=== PATIENT | female | born 1970 | race Caucasian/White ===

== ENCOUNTER 2021-06-26 06:29 | Emergency (ER) | payer OTHER, SELFPAY ==
[2021-06-26] VITALS (8 sets, daily range): BP systolic 105–128; BP diastolic 79–95; PULSE 80–95; RESP 18–19; TEMP 36.9–37.2; O2SAT 91–96; BMI 39.9
--- NOTE | 2021-06-26 06:58 | XRR_ITS ---
PROCEDURE INFORMATION: Exam: XR Chest Exam date and time: 06/26/2021 6:58 AM Age: 51 years old Clinical indication: Patient HX: SOB, coughing x 1 week; Additional info: Dyspnea TECHNIQUE: Imaging protocol: XR of the chest. Views: 1 view. COMPARISON: No relevant prior studies available. FINDINGS: Lungs: Emphysematous change and interstitial prominence. Pleural spaces: No pleural effusion. Heart/Mediastinum: No cardiomegaly. Bones/joints: Unremarkable. XR/XR chest 1V portable [id number] IMPRESSION: Emphysematous change and interstitial prominence.
--- NOTE | 2021-06-26 07:19 | W.ED.COVID ---
HPI - COVID General: Chief Complaint: COVID symptoms Stated Complaint: Sob, Cough Time Seen by Provider: 06/26/21 06:40 Triage information: Has fever, cough or shortness of breath. Exposure to COVID + person last 14 days History of Present Illness: HPI Narrative: 51-year-old female presents emergency room complaining of cough fever anosmia and diarrhea. Symptoms began 1 week ago today. They seem to be worsening slightly the last couple of days. MD complaint: known COVID positive Prior covid testing: no COVID 19 common symptoms: positive fever(s), chills, cough, non-productive cough, productive cough, body aches, headache(s), loss of sense of smell and/or taste, nasal congestion, nausea and diarrhea COVID 19 other sytmptoms: negative chest pain or requiring oxygen Onset (ago): day(s) (7) Severity: mild Pertinent comorbid conditions: diabetes and hypertension Treatment prior to arrival: none COVID Results: SARS-CoV-2 Antigen (Rapid) Positive (Negative) 06/26/21 06:55 06/26/21 Nasal/Oral Coronavirus 2019 PCR Detected H 06/26/21 07:02 06/26/21 Review of Systems Const: Reports: fever(s), chills and body aches ENMT: Reports: nasal congestion Card: Denies: chest pain, edema, dyspnea on exertion or orthopnea Resp: Reports: productive cough and non-productive cough GI: Reports: nausea and diarrhea : Denies: flank pain, difficulty voiding, dysuria, urinary frequency or urinary urgency Skin/Breast: Denies: rash or pruritus Neuro: Reports: headache(s) Physical Exam Const: COMMON NORMALS: no acute distress GENERAL APPEARANCE: cooperative and comfortable ORIENTATION/CONSCIOUSNESS: Yes awake, Yes oriented to person, Yes oriented to place and Yes oriented to time HENMT: COMMON NORMALS: normocephalic, atraumatic and hearing grossly normal bilaterally HEAD & SCALP: normocephalic and atraumatic Neck/C-Spine: COMMON NORMALS: no JVD Resp: COMMON NORMALS: normal respiratory effort, No retractions, No use of accessory muscles and clear to auscultation bilaterally AUSCULTATION: clear to auscultation bilaterally Cardio: COMMON NORMALS: no JVD, regular rate, regular rhythm and No murmurs present (Cardio) RATE: regular rate RHYTHM: regular rhythm GI: COMMON NORMALS: Soft to palpation and No hepatosplenomegaly present AUSCULTATION: Yes normoactive bowel sounds PALPATION: Yes Soft to palpation, No Tenderness to palpation present (GI), No Guarding due to palpation present (GI) and Yes No hepatosplenomegaly present Extremity: COMMON NORMALS: normal to inspection, capillary refill normal, no clubbing, cyanosis or edema, no calf tenderness and no pedal edema Neuro: SENSORIUM/ORIENTATION: Yes oriented to person, Yes oriented to place and Yes oriented to time Skin: COMMON NORMALS: no rashes or lesions noted GENERAL SKIN EXAM: no rashes or lesions noted Course Vital Signs: Vital signs: Vital Signs Temperature 98.4 F 06/26/21 10:32 Pulse Rate 87 06/26/21 10:32 Respiratory Rate 19 H 06/26/21 10:32 Blood Pressure 126/79 06/26/21 10:32 Pulse Oximetry 95 06/26/21 10:32 MDM - COVID MDM Narrative: Medical decision making narrative: Patient meets qualifications for BAM infusion. Discussed risk benefits and alternatives. Patient wishes to proceed. She does not meet qualifications for home oxygen. Her rapid was positive as well as the rapid she had positive at home. Lab Data: Labs: Lab Results 06/26/21 06/26/21 Range/Units 06:55 07:02 Nasal/Oral COVID-1 9 PCR Detected H SARS-CoV-2 Ag (Rap id) Positive H (Negative) COVID Results: SARS-CoV-2 Antigen (Rapid) Positive (Negative) H 06/26/21 06:55 06/26/21 Nasal/Oral Coronavirus 2019 PCR Detected H 06/26/21 07:02 06/26/21 Monoclonal Antibody Treatments Inclusion/Exclusion Criteria weight >/= 40 kg and + direct Sars-Cov-2 test less than 7-10 days ago BMI >/= 35 and has diabetes not requiring hospitalization, not requiring oxygen (if not chronically on oxygen) and no increase oxygen requirement (if chronically on oxygen) Patient education patient/family/caregiver received/reviewed fact sheet, Emergency Use Authorization/unapproved drug status discussed with patient/family/caregiver, alternatives to this treatment discussed with patient/family/caregiver, risks and benefits of medication reviewed with patient/family/caregiver, patient/family/caregiver given opportunity for questions, which were answered and patient consents to receiving Monoclonal Antibody Treatment Plan for treatment Meets criteria for Monoclonal Antibody infusion Ordering Monoclonal Antibody infusion for today Discharge Plan Discharge Patient Disposition: Home Clinical Impression: COVID-19 Condition: Stable Discharge Orders: Discharge ED (Routine); Ordered 06/26/21 Ordered By: Ricki Mac Referrals: Lorraine Hallman [Primary Care Provider] - Patient Instructions: Opioid Safety Coding Level of Care Code ED Suction Plate Roller Hand for Chg Fwd Exam Comprehensive
[2021-06-26 07:49] LABS: SARS Covid-2 Antigen Positive (Negative)
--- NOTE | 2021-06-26 09:17 | PC.NURSE ---
Very nauseated . Informed Dr Mac. Verbal order for Zofran 4mg IVP
[2021-06-26] MEDS: ondansetron 2 mg/ML SDV 2 mL 4 MG IVP (09:28)
[2021-06-26 17:28] LABS: Coronavirus Test Green County Detected
== END 2021-06-26 11:05 | disposition home or self-care (01) ==
PROVIDERS: Emergency Provider Family Medicine; PCP Registered Nurse
DX: U07.1 COVID-19 (principal)
CPT/HCPCS: 71045; 87426; 87635; 96365; 96375; 99284; J2405

== ENCOUNTER 2021-06-29 00:11 | Emergency (ER) | payer OTHER, SELFPAY ==
[2021-06-29 00:28] VITALS: BP 161/91; PULSE 86; RESP 19; TEMP 37.1; O2SAT 96; BMI 39.9
[2021-06-29 00:32] VITALS: O2SAT 96
--- NOTE | 2021-06-29 00:32 | XRR_ITS ---
PROCEDURE INFORMATION: Exam: XR Chest Exam date and time: 06/29/2021 12:32 AM Age: 51 years old Clinical indication: Cough and shortness of breath; Additional info: Covid TECHNIQUE: Imaging protocol: XR of the chest. Views: 1 view. COMPARISON: CR XR chest 1V portable [id number] 06/26/2021 6:59 AM FINDINGS: Lungs: Mild peripheral ground-glass density in both lungs, more predominantly on the left, consistent with viral or atypical pneumonia. No dense consolidation. Pleural spaces: Unremarkable. No pleural effusion. No pneumothorax. Heart/Mediastinum: Unremarkable. No cardiomegaly. Bones/joints: Unremarkable. XR/XR chest 1V portable [id number] IMPRESSION: Mild peripheral ground-glass densities consistent with the patient's known COVID-19.
--- NOTE | 2021-06-29 01:18 | ED_ITS ---
HPI - COVID General: Chief Complaint: COVID symptoms Stated Complaint: sob, covid positive Time Seen by Provider: 06/29/21 00:32 Source: patient Mode of arrival: ambulatory Limitations: no limitations Triage information: Has fever, cough or shortness of breath . Exposure to COVID + person last 14 days History of Present Illness: HPI Narrative: Patient is a nice 51-year-old female who presents to ED today for re-evaluation of COVID symptoms. Patient states she is on day 7?8 of COVID symptoms. She was recently seen at our facility and received a monoclonal antibody infusion. Patient states since then she feels like her cough has progressively worsened. She states sometimes she coughs so hard it feels like she experiences of bronchospasm that makes it difficult to breathe. complaint: known COVID positive Prior covid testing: yes, results known Prior testing date: 06/26/21 COVID 19 common symptoms: positive cough, productive cough, dyspnea and fatigue; negative fever(s), chills, body aches, headache(s), nasal congestion, vomiting or diarrhea COVID 19 other sytmptoms: negative chest pain Onset (ago): day(s) Severity: moderate Pertinent comorbid conditions: diabetes, hypertension and obesity Treatment prior to arrival: monocloncal antibody COVID Results: SARS-CoV-2 Antigen (Rapid) Positive (Negative) H 06/26/21 06:55 06/26/21 Nasal/Oral Coronavirus 2019 PCR Detected H 06/26/21 07:02 06/26/21 Review of Systems Const: Reports: fatigue; Denies: fever(s), chills or body aches ENMT: Denies: nasal discharge or nasal congestion Card: Denies: chest pain or palpitations Resp: Reports: dyspnea and productive cough GI: Denies: abdominal pain, vomiting or diarrhea Neuro: Denies: headache(s) Physical Exam Const: COMMON NORMALS: no acute distress, patient oriented x3 and no limitations GENERAL APPEARANCE: cooperative NUTRITIONAL APPEARANCE: overweight ORIENTATION/CONSCIOUSNESS: Yes awake, Yes oriented to person, Yes oriented to place and Yes oriented to time HENMT: COMMON NORMALS: normocephalic and atraumatic HEAD & SCALP: normocephalic and atraumatic Resp: COMMON NORMALS: normal respiratory effort and clear to auscultation bilaterally AUSCULTATION: clear to auscultation bilaterally Cardio: COMMON NORMALS: regular rate and regular rhythm RATE: regular rate RHYTHM: regular rhythm Extremity: COMMON NORMALS: normal to inspection Neuro: SREE COMA SCALE: document GCS findings [place] coma scale eye opening: Spontaneous [place] coma scale verbal response: Orientated Sree coma scale motor response: Obey commands Sree coma scale total score: 15 COMMON NORMALS: patient oriented x3 SENSORIUM/ORIENTATION: Yes oriented to person, Yes oriented to place and Yes oriented to time Course Vital Signs: Vital signs: Vital Signs Temperature 98.7 F 06/29/21 00:28 Pulse Rate 67 06/29/21 01:32 Respiratory Rate 17 06/29/21 01:32 Blood Pressure 161/91 06/29/21 00:28 Pulse Oximetry 95 06/29/21 01:32 MDM - COVID MDM Narrative: Medical decision making narrative: Patient's vital signs are stable. She clinically is non-ill appearing. She is not requiring oxygen. Patient will be given albuterol inhaler and discharged home on oral dexamethasone. Slight worsening of CXR when compared to imaging 3 days ago. Return to ED precautions given. COVID Results: SARS-CoV-2 Antigen (Rapid) Positive (Negative) H 06/26/21 06:55 06/26/21 Nasal/Oral Coronavirus 2019 PCR Detected H 06/26/21 07:02 06/26/21 Discharge Plan Discharge Patient Disposition: Home Clinical Impression: COVID-19 Condition: Stable Prescriptions: New dexamethasone 6 mg tablet 6 mg PO DAILY Qty: 6 RF: 0 Discharge Orders: Discharge ED (Routine); Ordered 06/29/21 Ordered By: Zoila Vale Referrals: Lorraine Hallman [Primary Care Provider] - Activity Restrictions/Additional Instructions: You may return to the emergency department for worsening shortness of breath, severe difficulty breathing, severe chest pain, fevers, low oxygen saturations, or any other concerns you may have. I hope you begin to feel better soon. Coding Level of Care Code ED Revenue Collector for aKycee Colon Exam Detailed
[2021-06-29] MEDS: albuterol 8 gm MDI 2 PUFF INHALATION (01:20)
[2021-06-29 01:32] VITALS: PULSE 67; RESP 17; O2SAT 95
[2021-06-29] MEDS: dexamethasone 10 mg/mL INJ 8 MG IM (01:33)
== END 2021-06-29 01:34 | disposition home or self-care (01) ==
PROVIDERS: Emergency Provider Physician Assistant; PCP Registered Nurse
DX: U07.1 COVID-19 (principal)
CPT/HCPCS: 71045; 94640; 96372; 99283; J1100; J3535

== ENCOUNTER 2021-08-16 16:16 | Outpatient (CLI) | payer OTHER, SELFPAY ==
--- NOTE | 2021-08-16 | MR_ITS ---
WS: [id number] MRI THORACIC SPINE WITHOUT CONTRAST TECHNIQUE: Sagittal T1, T2 and STIR imaging. Axial T2 imaging. Noncontrast imaging obtained. CLINICAL INFORMATION: LEFT SIDED THORACIC PAIN BACK PAIN COMPARISON: None. FINDINGS: Mild thoracic curve. Mild thoracic kyphosis. No high-grade central canal narrowing. Cord signal is no rmal. Mild chronic anterior wedging in the mid thoracic spine with a few Schmorl's nodes. Chronic ant erior wedging at T7 and T8. Tiny shallow central protrusions more prominent at left T9-T10, left T10- 11, and T11-12. No significant central canal stenosis. Additional tiny shallow protrusions at T5-T6, right T6-7, and central T8-9. Moderate facet arthropathy in the lower thoracic spine. Mild bony foraminal narrowing left T11-12.Incidental left T10-T11 perineural cyst. Adrenal glands are normal. Normal caliber thoracic aorta. Slight effacement of ventral thecal sac. MR/MR thoracic spin wo con* [id number] IMPRESSION: 1. Mild thoracic curve. Mild thoracic kyphosis. No acute compression fractures . 2. Mild chronic anterior wedging in the mid thoracic spine at T7 and T8. 3. Shallow disc protrusions described above more prominent at left T9-T10, lef t T10-11, and left T11-12. No significant central canal stenosis. 4. Mild bony left T11-12 bony foraminal narrowing. 5. Moderate facet arthropathy lower thoracic spine.
== END 2021-08-16 16:17 | disposition home or self-care (01) ==
LOC: RADSHAW 16:20
PROVIDERS: PCP Registered Nurse; Visit Provider Registered Nurse
DX: G89.29 Other chronic pain (principal); M47.814 Spondylosis without myelopathy or radiculopathy, thoracic region; M51.24 Other intervertebral disc displacement, thoracic region; M48.54XA Collapsed vertebra, not elsewhere classified, thoracic region, initial encounter for fracture; X58.XXXA Exposure to other specified factors, initial encounter; M40.204 Unspecified kyphosis, thoracic region
CPT/HCPCS: 72146

== ENCOUNTER 2021-11-10 17:03 | Observation (INO) | payer OTHER, SELFPAY ==
[2021-11-10 17:12] VITALS: BP 171/115; PULSE 89; RESP 16; TEMP 36.5; O2SAT 99
[2021-11-10 17:38] LABS: Glucose Point of Care 189 mg/dL (70-110)
--- NOTE | 2021-11-10 17:42 | CTR_ITS ---
PROCEDURE INFORMATION: Exam: CT Angiography Head With Contrast, Arteriography Exam date and time: 11/10/2021 5:42 PM Age: 51 years old Clinical indication: Numbness and visual disturbance; Additional info: Blurriness of vision x 3 days, elevated blood pressure, TOLENTINO, right sided weakness, confusion TECHNIQUE: Imaging protocol: Computed tomography angiography of the head with contrast. Exam focused on the arteries. 3D rendering (Not supervised by radiologist): MIP and/or 3D reconstructed images were created by the technologist. Radiation optimization: All CT scans at this facility use at least one of these dose optimization techniques: automated exposure control; mA and/or kV adjustment per patient size (includes targeted exams where dose is matched to clinical indication); or iterative reconstruction. Contrast material: OMNI 350; Contrast volume: 95 ml; Contrast route: INTRAVENOUS (IV); COMPARISON: CT head wo con* [id number] 11/10/2021 6:26 PM RADIATION DOSE METRICS: Total DLP (mGy-cm): 2387.73 FINDINGS: ANTERIOR CIRCULATION: Right internal carotid artery: Unremarkable. Intracranial segment is patent with no significant stenosis. No aneurysm. Right middle cerebral artery: Unremarkable. No occlusion or significant stenosis. No aneurysm. Right anterior cerebral artery: Unremarkable. No occlusion or significant stenosis. No aneurysm. Left internal carotid artery: Unremarkable. Intracranial segment is patent with no significant stenosis. No aneurysm. Left middle cerebral artery: Unremarkable. No occlusion or significant stenosis. No aneurysm. Left anterior cerebral artery: Unremarkable. No occlusion or significant stenosis. No aneurysm. POSTERIOR CIRCULATION: Right vertebral artery: Unremarkable. No occlusion or significant stenosis. No aneurysm. Left vertebral artery: Unremarkable. No occlusion or significant stenosis. No aneurysm. Basilar artery: Unremarkable. No occlusion or significant stenosis. No aneurysm. Right posterior cerebral artery: Unremarkable. No occlusion or significant stenosis. No aneurysm. Left posterior cerebral artery: Unremarkable. No occlusion or significant stenosis. No aneurysm. Veins: Dural venous sinuses are patent. Brain: No definite mass, mass effect, or midline shift. Cerebral ventricles: No ventriculomegaly. Bones/joints: Unremarkable. No acute fracture. Soft tissues: Unremarkable. PROCEDURE INFORMATION: Exam: CT Angiography Neck With Contrast Exam date and time: 11/10/2021 5:42 PM Age: 51 years old Clinical indication: Numbness and visual disturbance; Additional info: Blurriness of vision x 3 days, elevated blood pressure, TOLENTINO, right sided weakness, confusion TECHNIQUE: Imaging protocol: Computed tomography angiography of the neck with contrast. 3D rendering (Not supervised by radiologist): MIP and/or 3D reconstructed images were created by the technologist. Radiation optimization: All CT scans at this facility use at least one of these dose optimization techniques: automated exposure control; mA and/or kV adjustment per patient size (includes targeted exams where dose is matched to clinical indication); or iterative reconstruction. Contrast material: OMNI 350; Contrast volume: 95 ml; Contrast route: INTRAVENOUS (IV); COMPARISON: CT head wo con* [id number] 11/10/2021 6:26 PM RADIATION DOSE METRICS: Total DLP (mGy-cm): 2387.73 FINDINGS: Right common carotid artery: No stenosis. No dissection or occlusion. Right internal carotid artery: No stenosis of the extracranial segment. No dissection or occlusion. Right external carotid artery: No occlusion or stenosis of the origin. Left common carotid artery: No stenosis. No dissection or occlusion. Left internal carotid artery: No stenosis of the extracranial segment. No dissection or occlusion. Left external carotid artery: No occlusion or stenosis of the origin. Right vertebral artery: No stenosis. No dissection or occlusion. Left vertebral artery: No stenosis. No dissection or occlusion. Soft tissues: Soft tissues in the neck and thoracic inlet are unremarkable. Bones/joints: No acute fracture. CT/CT angio headneck* [id number] IMPRESSION: No arterial stenosis, occlusion or aneurysm. IMPRESSION: No arterial stenosis, occlusion or dissection. REFERENCES: NASCET CRITERIA. The degree of internal carotid artery stenosis is based on NASCET criteria. Normal is no stenosis. Mild is less than 50% stenosis. Moderate is 50-69% stenosis. Severe is 70% to 99% stenosis. Total occlusion is no detectable patent lumen.
--- NOTE | 2021-11-10 17:42 | ECG_ITS ---
[facility] Test Date: 2021-11-10 Pat Name: Laisha Aranda Department: Room: Gender: Female Sales Enablement Lead: : 1970 Requested By: Casimiro Lindsey Order Number: [id number] Reading MD: Deborah Simental M.D. Measurements Intervals [place] Rate: 77 P: 57 [place]: 207 QRS: 27 QRSD: 97 T: 29 QT: 368 QTc: 417 Interpretive Statements SINUS RHYTHM LOW QRS VOLTAGE IN PRECORDIAL LEADS [QRS DEFLECTION < 1.0 mV IN CHEST LEADS] No previous ECG available for comparison Electronically Signed On 11-11-2021 7:31:45 LEADER WRITER by Deborah Simental M.D. [id number]
--- NOTE | 2021-11-10 17:42 | CTR_ITS ---
PROCEDURE INFORMATION: Exam: CT Head Without Contrast Exam date and time: 11/10/2021 5:42 PM Age: 51 years old Clinical indication: Speech disturbance and visual disturbance; Patient HX: R sided weakness, slurred speech and blurry vision; Additional info: Neuro symptoms R sided weakness? /blurriness of vision TECHNIQUE: Imaging protocol: Computed tomography of the head without contrast. Radiation optimization: All CT scans at this facility use at least one of these dose optimization techniques: automated exposure control; mA and/or kV adjustment per patient size (includes targeted exams where dose is matched to clinical indication); or iterative reconstruction. COMPARISON: No relevant prior studies available. RADIATION DOSE METRICS: Total DLP (mGy-cm): 964.6 FINDINGS: Brain: Normal. No hemorrhage. Unremarkable white matter. No mass effect. Cerebral ventricles: No ventriculomegaly. Paranasal sinuses: There is a right maxillary sinus mucous retention cyst. Visualized sinuses are unremarkable. No fluid levels. Mastoid air cells: There is trace fluid in the left mastoid air cells. Right mastoid air cells are clear. Bones/joints: Unremarkable. No acute fracture. Soft tissues: Unremarkable. CT/CT head wo con* [id number] IMPRESSION: No acute intracranial abnormality.
--- NOTE | 2021-11-10 18:08 | W.ED.GENADLT ---
HPI - General Adult General: Chief complaint: Neuro Symptoms/Deficit Stated complaint: SLURRED SPEECH/BLURRY VISION/R SIDE DROOPING Time Seen by Provider: 11/10/21 17:19 History of Present Illness: HPI narrative: Patient is a 51-year-old female history of diabetes, hypertension presents emergency room for evaluation of bilateral visual blurriness since 3 days ago, with new onset of right-sided weakness since 1600 that has improved on arrival. Patient says she still able to range her right side but feels right-sided peers to be heavy. Patient reports having poor finding difficulty. Arrival, patient has an NIH stroke scale 0. Has no history of chest pain shortness breath, palpitation, lightheadedness, nausea/vomiting, diarrhea, melena/seizure, cough/runny nose, sore throat. Denies any slurring of speech, drooling, amaurosis fugax, diplopia, or gait instability. Onset: 1600 R sided subjective weakness, b/l bluriness x 3 days Duration:ongoing Location: home Severity:moderate Review of Systems Narrative: Constitutional: No fever, no chills. HEENT: No vision changes, +blurriness of vision b/l CV: No chest pain, no palpitations PULM: no cough, no dyspnea. GI: No abdominal pain, no N/V/D. : No dysuria MSKEL: No muscle pain SKIN: No new rashes, no lesions. NEURO: No headache, +R sided focal weakness. HEME: No visible bruises PSYCH: Normal mood Physical Exam Narrative: EXAM NARRATIVE: Head: Atraumatic Eyes: PERRL, conjunctiva without injection, R 20/40, L 20/90 ENT: Mucous membrane moist NECK: Supple, ROM intact LUNGS: LCTAB, no crackles/rhonchi CV: RRR ABDOMEN: Soft, nontender in all quadrants EXTREMITY: Normal ROM SKIN: No rash or erythema NEURO: Mental status? Awake, alert, and oriented to self, year, month, location, and situation.? Following simple axial and appendicular commands.? Has appropriate fund of knowledge, comprehension, and insight.? Able to recall and understands pertinent aspects of medical history and current treatment status.? ? Language? Speech is fluent without word-finding difficulties.? Intact naming, expression, windows technical specialist, and repetition.? ? Cranial nerves? 2,3,4,6: PERRL, EOMI with no nystagmus. 5: Intact sensation to light touch, symmetric? 7: Smile symmetrical, no facial droop.? 8: Hearing grossly intact.? 9,10: Normal palate movement.? 11: Normal strength in trapezius bilaterally 12: Tongue protrudes midline.? ? Motor examination? Normal bulk & tone. Strength as follows (R/L): Delts (5/5), Biceps (5/5), Triceps (5/5), Wrist ext (5/5), hip flexors (5/5), plantarflexors (5/5), dorsiflexors (5/5). ? Sensation? Light Touch: Grossly intact and equal in upper and lower extremities bilaterally? Romberg: Negative.? Distal joint position sense intact ? Coordination? Axlnvk-fh-vrkd-finger movements intact without dysmetria or past-pointing.? Rapid fingertaps: preserved amplitude without decriment.? No tremor, myoclonus or truncal ataxia.? ? Gait/stance? Steady, normal narrow base gait with appropriate arm swing and turning.? Tandem gait without hesitation or loss of balance. PSYCH: Normal mood and affect Course Vital Signs: Vital signs: Vital Signs Temperature 97.7 F 11/10/21 19:00 Pulse Rate 89 11/10/21 19:00 Respiratory Rate 16 11/10/21 19:00 Blood Pressure 133/80 11/10/21 19:00 Pulse Oximetry 99 11/10/21 19:00 MDM - General Adult MDM Narrative: Medical decision making narrative: 51-year-old female presents emergency room with complaints of subjective right-sided weakness in the setting of acute onset of bilateral blurriness of vision. NIH stroke scale zero. Case was immediately discussed upon arrival with Dr. Saldana who agrees with plan the patient is not a candidate for TPA at this time. Neurological exam is within normal limit. CT brain negative for any acute finding. CT head and neck negative for any large vessel occlusion. Given persistent blurriness of vision, possible TIA, with appropriate risk factors of diabetes, hypertension, patient will be mated to hospital for further evaluation w/ telemetry and limited echo. Dr. Saldana recommended going home with ASA +/- plavix. Unclear cause of visual blurriness. Disposition: admission Lab Data: Labs: Lab Results 11/10/21 11/10/21 11/10/21 17:33 18:16 18:16 WBC 9.4 10^3/uL 10^3/ uL (4.0-10.0) RBC 4.78 10^6/uL 10^6 /uL (4.1-5.3) Hgb 14.7 g/dL g/dL (11.5-15.3) Hct 42.7 % % (37.0-47.0) MCV 89.3 fl fl (81-99) MCH 30.8 pg pg (28.0-34.0) MCHC 34.4 g/dL g/dL (30.0-36.0) RDW 12.0 % L % (12.1-15.1) Plt Count 301 10^3/cmm 10^3 /cmm (130-400) MPV 9.9 fL fL (7.4-10.4) Neut % (Auto) 55.3 % % Lymph % (Auto) 34.0 % % [place] % (Auto) 5.8 % % Eos % (Auto) 3.8 % % Baso % (Auto) 0.7 % % Neut # (Auto) 5.19 10^3/uL 10^3 /uL (1.8-7.7) Lymph # (Auto) 3.2 10^3/uL 10^3/ uL (0.8-4.8) [place] # (Auto) 0.6 10^3/uL 10^3/ uL (0.2-0.9) Eos # (Auto) 0.4 10^3/uL 10^3/ uL (0.0-0.8) Baso # (Auto) 0.1 10^3/uL 10^3/ uL (0.0-0.1) Nucleated RBC % (a uto) 0 % % Nucleated RBCs # 0.0 /100WBC /100W BC Sodium 139 mmol/L mmol/L (136-145) Potassium 3.7 mmol/L mmol/L (3.5-5.1) Chloride 102 mmol/L mmol/L (98-107) Carbon Dioxide 21 mmol/L L mmol/ L (22-29) Anion Gap 19.7 H (5-19) BUN 13 mg/dL mg/dL (6-20) Creatinine 0.8 mg/dL mg/dL (0.5-0.9) GFR Calculation 76.2 mL/min L mL/ min (90-130) Glucose 205 mg/dL H mg/dL (65-115) POC Glucose 189 mg/dL H mg/dL (70-110) Calculated Osmolal ity 294 mOsm/kg mOsm/ kg (285-295) Calcium 8.3 mg/dL L mg/dL (8.5-10.5) Total Bilirubin 0.3 mg/dL mg/dL (0.15-1.2) AST 23 U/L U/L (0-32) ALT 35 U/L H U/L (0-33) Alkaline Phosphata se 121 IU/L H IU/L (35-105) Troponin T Baselin e Total Protein 6.4 g/dL L g/dL (6.6-8.7) Albumin 4.0 g/dL g/dL (3.5-5.2) Globulin 2.4 g/dL g/dL (1.3-4.6) Lipase 23 U/L U/L (13-60) 11/10/21 18:16 WBC RBC Hgb Hct MCV MCH MCHC RDW Plt Count MPV Neut % (Auto) Lymph % (Auto) [place] % (Auto) Eos % (Auto) Baso % (Auto) Neut # (Auto) Lymph # (Auto) [place] # (Auto) Eos # (Auto) Baso # (Auto) Nucleated RBC % (a uto) Nucleated RBCs # Sodium Potassium Chloride Carbon Dioxide Anion Gap BUN Creatinine GFR Calculation Glucose POC Glucose Calculated Osmolal ity Calcium Total Bilirubin AST ALT Alkaline Phosphata se Troponin T Baselin e 9 ng/L ng/L (0-10) Total Protein Albumin Globulin Lipase Imaging Data^: Other Imaging: Radiologist's impression: [address] [id number] Scan ReportSigned Patient: Laisha Aranda #: [id number]: 1970Acct#:[id number]/Sex: 51 / FADM Date: 11/10/21Loc: ERRoom/Bed:Attending Dr: Ordering Provider/Ordering MD: Casimiro Lindsey MD Date of Service: 11/10/21 Procedure(s): CT angio headneck* [id number] Accession Number(s): [id number] Report Number: [id number] PROCEDURE INFORMATION: Exam: CT Angiography Head With Contrast, Arteriography Exam date and time: 11/10/2021 5:42 PM Age: 51 years old Clinical indication: Numbness and visual disturbance; Additional info: Blurriness of vision x 3 days, elevated blood pressure, TOLENTINO, right sided weakness, confusion TECHNIQUE: Imaging protocol: Computed tomography angiography of the head with contrast. Exam focused on the arteries. 3D rendering (Not supervised by radiologist): MIP and/or 3D reconstructed images were created by the technologist. Radiation optimization: All CT scans at this facility use at least one of these dose optimization techniques: automated exposure control; mA and/or kV adjustment per patient size (includes targeted exams where dose is matched to clinical indication); or iterative reconstruction. Contrast material: OMNI 350; Contrast volume: 95 ml; Contrast route: INTRAVENOUS (IV); COMPARISON: CT head wo con* [id number] 11/10/2021 6:26 PM RADIATION DOSE METRICS: Total DLP (mGy-cm): 2387.73 FINDINGS: ANTERIOR CIRCULATION: Right internal carotid artery: Unremarkable. Intracranial segment is patent with no significant stenosis. No aneurysm. Right middle cerebral artery: Unremarkable. No occlusion or significant stenosis. No aneurysm. Right anterior cerebral artery: Unremarkable. No occlusion or significant stenosis. No aneurysm. Left internal carotid artery: Unremarkable. Intracranial segment is patent with no significant stenosis. No aneurysm. Left middle cerebral artery: Unremarkable. No occlusion or significant stenosis. No aneurysm. Left anterior cerebral artery: Unremarkable. No occlusion or significant stenosis. No aneurysm. POSTERIOR CIRCULATION: Right vertebral artery: Unremarkable. No occlusion or significant stenosis. No aneurysm. Left vertebral artery: Unremarkable. No occlusion or significant stenosis. No aneurysm. Basilar artery: Unremarkable. No occlusion or significant stenosis. No aneurysm. Right posterior cerebral artery: Unremarkable. No occlusion or significant stenosis. No aneurysm. Left posterior cerebral artery: Unremarkable. No occlusion or significant stenosis. No aneurysm. Veins: Dural venous sinuses are patent. Brain: No definite mass, mass effect, or midline shift. Cerebral ventricles: No ventriculomegaly. Bones/joints: Unremarkable. No acute fracture. Soft tissues: Unremarkable. PROCEDURE INFORMATION: Exam: CT Angiography Neck With Contrast Exam date and time: 11/10/2021 5:42 PM Age: 51 years old Clinical indication: Numbness and visual disturbance; Additional info: Blurriness of vision x 3 days, elevated blood pressure, TOLENTINO, right sided weakness, confusion TECHNIQUE: Imaging protocol: Computed tomography angiography of the neck with contrast. 3D rendering (Not supervised by radiologist): MIP and/or 3D reconstructed images were created by the technologist. Radiation optimization: All CT scans at this facility use at least one of these dose optimization techniques: automated exposure control; mA and/or kV adjustment per patient size (includes targeted exams where dose is matched to clinical indication); or iterative reconstruction. Contrast material: OMNI 350; Contrast volume: 95 ml; Contrast route: INTRAVENOUS (IV); COMPARISON: CT head wo con* [id number] 11/10/2021 6:26 PM RADIATION DOSE METRICS: Total DLP (mGy-cm): 2387.73 FINDINGS: Right common carotid artery: No stenosis. No dissection or occlusion. Right internal carotid artery: No stenosis of the extracranial segment. No dissection or occlusion. Right external carotid artery: No occlusion or stenosis of the origin. Left common carotid artery: No stenosis. No dissection or occlusion. Left internal carotid artery: No stenosis of the extracranial segment. No dissection or occlusion. Left external carotid artery: No occlusion or stenosis of the origin. Right vertebral artery: No stenosis. No dissection or occlusion. Left vertebral artery: No stenosis. No dissection or occlusion. Soft tissues: Soft tissues in the neck and thoracic inlet are unremarkable. Bones/joints: No acute fracture. CT/CT angio headneck* [id number] IMPRESSION: No arterial stenosis, occlusion or aneurysm. IMPRESSION: No arterial stenosis, occlusion or dissection. REFERENCES: NASCET CRITERIA. The degree of internal carotid artery stenosis is based on NASCET criteria. Normal is no stenosis. Mild is less than 50% stenosis. Moderate is 50-69% stenosis. Severe is 70% to 99% stenosis. Total occlusion is no detectable patent lumen. Dictated By:Chandler Hicksigned By:Chandler Hicks Date/Time:11/10/21 1931DD/ [address] [id number] Scan ReportSigned Patient: Laisha Aranda #: [id number]: 1970Acct#:[id number]/Sex: 51 / FADM Date: 11/10/21Loc: ERRoom/Bed:Attending Dr: Ordering Provider/Ordering MD: Casimiro Lindsey MD Date of Service: 11/10/21 Procedure(s): CT head wo con* [id number] Accession Number(s): [id number] Report Number: [id number] PROCEDURE INFORMATION: Exam: CT Head Without Contrast Exam date and time: 11/10/2021 5:42 PM Age: 51 years old Clinical indication: Speech disturbance and visual disturbance; Patient HX: R sided weakness, slurred speech and blurry vision; Additional info: Neuro symptoms R sided weakness? /blurriness of vision TECHNIQUE: Imaging protocol: Computed tomography of the head without contrast. Radiation optimization: All CT scans at this facility use at least one of these dose optimization techniques: automated exposure control; mA and/or kV adjustment per patient size (includes targeted exams where dose is matched to clinical indication); or iterative reconstruction. COMPARISON: No relevant prior studies available. RADIATION DOSE METRICS: Total DLP (mGy-cm): 964.6 FINDINGS: Brain: Normal. No hemorrhage. Unremarkable white matter. No mass effect. Cerebral ventricles: No ventriculomegaly. Paranasal sinuses: There is a right maxillary sinus mucous retention cyst. Visualized sinuses are unremarkable. No fluid levels. Mastoid air cells: There is trace fluid in the left mastoid air cells. Right mastoid air cells are clear. Bones/joints: Unremarkable. No acute fracture. Soft tissues: Unremarkable. CT/CT head wo con* [id number] IMPRESSION: No acute intracranial abnormality. Dictated By:Rayo Glynn By:Rayo Glynn Date/Time:11/10/211916DD/ 41 Discharge Plan Discharge Patient Disposition: Admitted As Inpatient Clinical Impression: Brain TIA Condition: Stable Coding Level of Care Code ED Home Hospice Rn for Kaycee Colon
[2021-11-10 18:25] LABS: Basophils # 0.1 10^3/uL (0.0-0.1); Basophils % 0.7 %; Eosinophils # 0.4 10^3/uL (0.0-0.8); Eosinophils % 3.8 %; Hematocrit 42.7 % (37.0-47.0); Hemoglobin 14.7 g/dL (11.5-15.3); Lymphocytes # 3.2 10^3/uL (0.8-4.8); Mean Corpuscular HGB Conc 34.4 g/dL (30.0-36.0); Mean Corpuscular Hemoglobin 30.8 pg (28.0-34.0); Mean Corpuscular Volume 89.3 fl (81-99); Mean Platelet Volume 9.9 fL (7.4-10.4); Monocytes # 0.6 10^3/uL (0.2-0.9); Monocytes % 5.8 %; Neutrophils # 5.19 10^3/uL (1.8-7.7); Neutrophils % 55.3 %; Nucleated Red Blood Cells % 0 %; Platelet Count 301 10^3/cmm (130-400); Red Blood Count 4.78 10^6/uL (4.1-5.3); White Blood Count 9.4 10^3/uL (4.0-10.0)
[2021-11-10] MEDS: iohexol 350 mg/mL 100 mL Btl IV (18:29)
[2021-11-10 18:46] LABS: Troponin(5th) Baseline 9 ng/L (0-10)
[2021-11-10 18:47] LABS: Alanine Aminotransferase 35 U/L (0-33); Alkaline Phosphatase 121 IU/L (35-105); Anion Gap 19.7 (5-19); Aspartate Amino Transferase 23 U/L (0-32); Blood Urea Nitrogen 13 mg/dL (6-20); Calcium 8.3 mg/dL (8.5-10.5); Carbon Dioxide 21 mmol/L (22-29); Chloride 102 mmol/L (98-107); Globulin 2.4 g/dL (1.3-4.6); Glomerular Filtration Rate 76.2 mL/min (90-130); Glucose 205 mg/dL (65-115); Lipase 23 U/L (13-60); Osmolality Calculated 294 mOsm/kg (285-295); Potassium 3.7 mmol/L (3.5-5.1); Sodium 139 mmol/L (136-145); Total Bilirubin 0.3 mg/dL (0.15-1.2); Total Protein 6.4 g/dL (6.6-8.7)
[2021-11-10 19:00] VITALS: BP 133/80; PULSE 89; RESP 16; TEMP 36.5; O2SAT 99
--- NOTE | 2021-11-10 22:04 | USCV_ITS ---
Laisha Aranda Age: 51 Gender: F : 1970 Exam Date: 11/10/2021 22:33 Ordering Phys: Casimiro Lindsey MD Technologist: Exam Location: [facility] – [place], [place] Indication: TIA BP: 145 / 80 HR: 74 Rhythm: Sinus Technical Quality: Adequate MEASUREMENTS (Male / Female) Normal Values 2D ECHO LVOT Diameter 2.1 cm LV Ejection Fraction MOD 2C 70.0 % LV Ejection Fraction 2C AL 71.1 % LA Diameter 3.5 cm LA Width 3.7 cm LA Height 5.0 cm RA Width 4.1 cm RA Height 3.5 cm Aorta at Sinotubular Diameter 2.5 cm M-MODE Aortic Annulus Diameter 3.0 cm LA Ao Ratio MM 1.3 MV E Point Septal Separation 1.2 cm DOPPLER AV Peak Velocity 114.0 cm/s LVOT Peak Velocity 81.0 cm/s AV Area Cont Eq vti 2.1 cm squared AV Area Cont Eq pk 2.5 cm squared MV Area PHT 4.4 cm squared Mitral E to A Ratio 1.2 MV E' Velocity 40.0 cm/s Mitral E to MV E' Ratio 8.1 Mitral E to LV E' Lateral Ratio 6.4 Mitral E to LV E' Septal Ratio 11.1 TR Peak Velocity 120.3 cm/s TR Peak Gradient 5.8 mmHg TV Peak E Velocity 71.0 cm/s Right Atrial Pressure 3.0 mmHg Pulmonary Artery Systolic Pressu 8.8 mmHg FINDINGS Left Ventricle Normal left ventricular cavity size. Normal left ventricular systolic function. No regional wall motion abnormalities. Left ventricular ejection fraction is estimated at 60 %. Normal diastolic function. Right Ventricle The right ventricle is normal in size and function. Right Atrium The right atrium is normal in size. Left Atrium The left atrium is normal in size. Mitral Valve Structurally normal mitral valve without significant stenosis or prolapse. There is no mitral regurgitation. Aortic Valve Structurally normal aortic valve without significant sclerosis or stenosis. There is no aortic regurgitation. Tricuspid Valve Structurally normal tricuspid valve without significant stenosis or regurgitation. Pulmonary artery systolic pressure is normal. Pulmonic Valve Structurally normal pulmonic valve without significant stenosis. There is no pulmonic regurgitation. Pericardium Normal pericardium without effusion. Aorta Normal ascending aorta dimension. CONCLUSIONS 1-Normal left ventricular cavity size. Normal left ventricular systolic function. No regional wall motion abnormalities. Left ventricular ejection fraction is estimated at 60 %. Normal diastolic function. 2-There is no pericardial effusion. 3-No significant valve abnormalities. 4-Pulmonary artery systolic pressure is within normal limits. 5-Right atrial pressure is around 5 mm of mercury. 6-There are no prior echocardiogram studies to compare. Sonal Jack MD (Electronically Signed) Final Date: 11 November 2021 15:51 S
--- NOTE | 2021-11-10 23:44 | PM.HP ---
Providers/Chief Complaint Admitting Physician: Silvia Reaves MD Primary Care Provider: Lorraine Hallman Chief Complaint: SLURRED SPEECH/BLURRY VISION/R SIDE DROOPING History of Present Illness Laisha Aranda is a 51 year old female with a past medical history of diabetes mellitus, recently started Trulicity in addition to oral hypoglycemic agents, does not recall all the names. Also additionally with hypertension on treatment. Reports also a past medical history of fast heart rate appears to be SVT per her description. Reportedly in her usual state of health until about 4 PM this afternoon when she started experiencing initially confusion. States she was on the phone with her daughter, suddenly could not comprehend what her daughter was staying, words did not make sense. She went in to talk to her , however her speech was garbled with word salad reportedly. This has slowly subsided to the point where patient is able to have a conversation with me, however thinks that it is taking her longer than usual to come up with the right words. She also describes blurred vision. States she has been having trouble with her eyes for a while now and had been scheduled to see ophthalmology but today feels like her vision is worse than usual. Describes this as inability to read words at a close distance, with words appearing to be blurred. Right eye appears to be worse than the left. She is able to read things at a distance including ER monitors and labels. NIH stroke scale 0 upon admission. Per discussion with ERP Case was discussed with Dr. Saldana, patient not deemed to be a candidate for TPA. No focal motor deficits on exam. CT head and CTA were without any acute intracranial abnormality. Patient denies any recent addition of medications except for Trulicity which was only started 2 weeks ago. Blood glucose at the time of events was 166. h/o covid 12 june 2021 Review of Systems General: Reports: 10 or more systems reviewed and unremarkable except in HPI and below Const: Denies: fever(s), chills or body aches Eyes: Denies: change in vision, blurry vision or photophobia ENMT: Denies: throat pain, enlarged tonsils, odynophagia or nasal congestion Card: Denies: chest pain, palpitations, irregular heart rhythm, edema, swelling of feet/ankles, lightheadedness, pre-syncope, dyspnea on exertion or orthopnea Resp: Denies: dyspnea, productive cough, non-productive cough, wheezing, stridor, pain on inspiration, change in phlegm color, hemoptysis or chest congestion GI: Denies: abdominal pain, nausea, vomiting, hematemesis, coffee ground emesis, dysphagia, heartburn, diarrhea, constipation, GI cramping, change in stool character, hematochezia or melena : Denies: flank pain, difficulty voiding, dysuria, urinary frequency, urinary urgency, urinary hesitancy or hematuria Musc: Denies: neck pain, back pain, extremity pain, joint swelling, joint warmth or deformity Neuro: Denies: headache(s), numbness in extremities, weakness in extremities, sensory changes, difficulty walking, frequent falls, dizziness, vertigo, behavioral changes, Slurred speech present or seizure-like activity Psych: Denies: anxiety, depression, suicidal ideation or homicidal ideation Endo: Denies: polyuria, polydipsia, tired all the time, cold intolerance or hot flashes Reji/Lymph: Denies: easy bruising or easy bleeding Medications/Allergies Home Medications Medication Instructions Recorded Confirmed Last Taken Type dexamethasone 6 mg PO DAILY #6 tab 06/29/21 Unknown Rx Allergies Allergy/AdvReac Type Severity Reaction Status Date / Time erythromycin base Allergy ALGY-Anaphy Verified 06/29/21 00:31 laxis naproxen [From Naprosyn] Allergy ALGY-Anaphy Verified 06/29/21 00:31 laxis Sulfa (Sulfonamide Allergy ALGY-Anaphy Verified 06/29/21 00:31 Antibiotics) laxis PFSH Acute PFSH: Medical History (Updated 11/11/21 @ 08:34 by Silvia Reaves MD) COVID-12 june 2021 Diabetes Hypertension Vitals/I&O/Wt Last Vital Signs Temp 97.7 F 11/10/21 19:00 Pulse 89 11/10/21 19:00 Resp 16 11/10/21 19:00 BP 133/80 11/10/21 19:00 Pulse Ox 99 11/10/21 19:00 Weight last 48 hrs Weight 108.862 kg Physical Exam Narrative: EXAM NARRATIVE: General: No acute distress, AO x3 HEENT: PERRLA, pupils bilaterally equal and reactive, pallors not present Chest: Normal vesicular breath sounds, no added sounds, equal good air entry bilaterally CVS: S1-S2 regular, no murmurs, no tachycardia, no gallops, no rubs Abdomen: Soft, nontender, no organomegaly, bowel sounds present Neuro: No focal deficits, no facial deformity, AO x3, power 5/5 in all limbs Data : 11/11/21 07:07 11/11/21 07:07 A&P Assessment and plan (1) TIA (transient ischemic attack): Patient presenting with chief complaints of what appears to be transient aphasia, blurring of vision, with acute onset of symptoms at 4 PM today. Hard to a certain if visual disturbances may be more chronic for her, patient states she has been having blurry vision at near reading for a while now however since 4 PM this appears to be worse. No visual field defects on exam today. Patient without any gross motor deficits. CT head and CTA without any acute thrombus. No bleed visualized. Does report a history of possible SVT, specifically states she was told she does not have A. fib, however given concerning symptoms of TIA will monitor her on telemetry overnight. States she takes atenolol at home, however list of her medications is not yet available. Her will bring them in. Past medical history in terms of risk factors significant for diabetes and hypertension. Check HbA1c, baseline lipid panel. Start aspirin 81 mg p.o. daily and atorvastatin 40 mg p.o. daily Echocardiogram already ordered from the ER will await results MRI in the morning to assess for any posterior circulation or brainstem pathology. Status: Acute Attestations Medical Necessity Statement*: Observation admission, anticipate less than 2 midnight stay. Coding Level of Care Code Acute Nursing Program Chair for Kaycee Colon Diagnoses TIA (transient ischemic attack) G45.9
[2021-11-11] VITALS (7 sets, daily range): BP systolic 123–177; BP diastolic 74–97; PULSE 74–85; RESP 13–23; O2SAT 95–99
[2021-11-11] MEDS: acetaminophen 325 mg Tablet 650 MG PO (02:42)
[2021-11-11 07:27] LABS: Basophils # 0.1 10^3/uL (0.0-0.1); Basophils % 0.9 %; Eosinophils # 0.3 10^3/uL (0.0-0.8); Hematocrit 41.1 % (37.0-47.0); Hemoglobin 13.9 g/dL (11.5-15.3); Lymphocytes # 2.9 10^3/uL (0.8-4.8); Lymphocytes % 35.8 %; Mean Corpuscular HGB Conc 33.8 g/dL (30.0-36.0); Mean Corpuscular Hemoglobin 30.6 pg (28.0-34.0); Mean Corpuscular Volume 90.5 fl (81-99); Mean Platelet Volume 10.2 fL (7.4-10.4); Monocytes # 0.6 10^3/uL (0.2-0.9); Monocytes % 6.8 %; Neutrophils # 4.35 10^3/uL (1.8-7.7); Nucleated Red Blood Cells % 0 %; Platelet Count 258 10^3/cmm (130-400); Red Blood Count 4.54 10^6/uL (4.1-5.3); Red Cell Distribution Width 12.2 % (12.1-15.1); White Blood Count 8.2 10^3/uL (4.0-10.0)
[2021-11-11 07:42] LABS: Alanine Aminotransferase 29 U/L (0-33); Albumin Level 3.6 g/dL (3.5-5.2); Alkaline Phosphatase 105 IU/L (35-105); Anion Gap 16.8 (5-19); Aspartate Amino Transferase 21 U/L (0-32); Blood Urea Nitrogen 13 mg/dL (6-20); Calcium 8.3 mg/dL (8.5-10.5); Carbon Dioxide 23 mmol/L (22-29); Chloride 103 mmol/L (98-107); Globulin 2.1 g/dL (1.3-4.6); Glomerular Filtration Rate 106.3 mL/min (90-130); Glucose 201 mg/dL (65-115); Osmolality Calculated 294 mOsm/kg (285-295); Potassium 3.8 mmol/L (3.5-5.1); Sodium 139 mmol/L (136-145); Total Bilirubin 0.4 mg/dL (0.15-1.2); Total Protein 5.7 g/dL (6.6-8.7)
[2021-11-11 08:22] LABS: Glucose Point of Care 201 mg/dL (70-110)
[2021-11-11 08:33] LABS: Chol HDL Ratio 4.12 mg/dL (0.0-4.40); Cholesterol 177 mg/dL (0-200); HDL Cholesterol 43 mg/dL (60-100); LDL Cholesterol Calculated 105 mg/dL (50-129); LDL HDL Ratio 2.44 RATIO (0.00-3.22); Triglycerides 146 mg/dL (0-150)
[2021-11-11 08:35] LABS: Estmated Average Glucose 332; Hemoglobin A1C 13.2 % (4.0-6.0)
[2021-11-11] MEDS: aspirin 81 mg EC Tablet PO (09:10)
--- NOTE | 2021-11-11 09:36 | MRR_ITS ---
PROCEDURE INFORMATION: Exam: MR Head Without Contrast Exam date and time: 11/11/2021 9:36 AM Age: 51 years old Clinical indication: Weakness, extremity; Right; Additional info: TIA, possible post circulation stroke TECHNIQUE: Imaging protocol: MR of the head without contrast. COMPARISON: CT head wo con* [id number] 11/10/2021 6:26 PM FINDINGS: Brain: No acute infarct. No hemorrhage. There is some mild scattered T2 and FLAIR hyperintensities in the periventricular and subcortical white matter which could represent some nonspecific small vessel chronic ischemic change or dysmyelinating disorder.. No edema. No restricted diffusion. Cerebral ventricles: Normal. No ventriculomegaly. Bones/joints: Unremarkable. Paranasal sinuses: There is mucous retention cyst in the right maxillary antrum. Mastoid air cells: Normal as visualized. No mastoid effusion. Orbital cavity: Unremarkable. Soft tissues: Unremarkable. MR/MR head wo con* [id number] IMPRESSION: No acute intracranial finding.
--- NOTE | 2021-11-11 12:25 | PM.DCS ---
Discharge Providers Date of Admission: 11/10/21 20:14 Date of Discharge: November 11, 2021 Attending Provider at Admission: Silvia Reaves MD Attending Provider at Discharge: Cisco Donald MD Primary Care Provider: Lorraine Hallman Diagnoses at Discharge Discharge Diagnosis (1) TIA (transient ischemic attack): Status: Acute Reason for Visit Reason for Visit: SLURRED SPEECH/BLURRY VISION/R SIDE DROOPING Hospital Course Hospital Course Laisha Aranda is a 51 year old female with a past medical history of diabetes mellitus, recently started Trulicity in addition to oral hypoglycemic agents, does not recall all the names. Also additionally with hypertension on treatment. Reports also a past medical history of fast heart rate appears to be SVT per her description. Reportedly in her usual state of health until about 4 PM this afternoon when she started experiencing initially confusion. States she was on the phone with her daughter, suddenly could not comprehend what her daughter was staying, words did not make sense. She went in to talk to her , however her speech was garbled with word salad reportedly. This has slowly subsided to the point where patient is able to have a conversation with me, however thinks that it is taking her longer than usual to come up with the right words. She also describes blurred vision. States she has been having trouble with her eyes for a while now and had been scheduled to see ophthalmology but today feels like her vision is worse than usual. Describes this as inability to read words at a close distance, with words appearing to be blurred. Right eye appears to be worse than the left. She is able to read things at a distance including ER monitors and labels. NIH stroke scale 0 upon admission. Per discussion with ERP Case was discussed with Dr. Saldana, patient not deemed to be a candidate for TPA. No focal motor deficits on exam. CT head and CTA were without any acute intracranial abnormality. Patient denies any recent addition of medications except for Trulicity which was only started 2 weeks ago. Blood glucose at the time of events was 166. h/o covid 12 june 2021. Patient admitted to hospital for further evaluation of possible TIA. Echocardiogram was done. Results are pending. Patient had complete resolution of her symptoms. MRI was done. During hospitalization patient was found to have high blood pressure for which her antihypertensives were adjusted. She is supposed to take amlodipine 10 mg daily along with losartan 25 mg daily. She is advised to monitor her blood pressure daily at home and maintain a blood pressure diary to follow-up with her primary care provider within next 1 week for further adjustment of antihypertensives. She is supposed to follow-up with neurologist within next 2 weeks. Patient is also advised to get an event monitor placed for around 21 days to rule out atrial fibrillation given history of tachyarrhythmias. The plan was discussed in detail with patient and she verbalized understanding. Physical Exam Narrative: EXAM NARRATIVE: General: No acute distress, AO x3 HEENT: PERRLA, pupils bilaterally equal and reactive, pallors not present Chest: Normal vesicular breath sounds, no added sounds, equal good air entry bilaterally CVS: S1-S2 regular, no murmurs, no tachycardia, no gallops, no rubs Abdomen: Soft, nontender, no organomegaly, bowel sounds present Neuro: No focal deficits, no facial deformity, AO x3, power 5/5 in all limbs Discharge Data Data Completed and Pending: Completed Studies During Hospitalization Category Date Time Status CT angio headneck * 90975/[id number] Urge nt Cat Scan 11/10/21 17:[address] head wo con* 7 0450 Urgent Cat Scan 11/10/21 17:42 Completed Pending at discharge Category Date Time Status MR head wo con* 7 0551 Urgent MRI 11/11/21 09:36 Taken CV. echo complete * [id number] Urgent Ultrasound 11/10/21 22:04 Taken Labs from last 24 hours 11/11/21 11/11/21 11/11/21 08:18 07:07 07:07 WBC RBC Hgb Hct MCV MCH MCHC RDW Plt Count MPV Neut % (Auto) Lymph % (Auto) [place] % (Auto) Eos % (Auto) Baso % (Auto) Neut # (Auto) Lymph # (Auto) [place] # (Auto) Eos # (Auto) Baso # (Auto) Nucleated RBC % (a uto) Nucleated RBCs # Sodium Potassium Chloride Carbon Dioxide Anion Gap BUN Creatinine GFR Calculation Glucose POC Glucose 201 H Estimat Average Gl ucose 332 Hemoglobin A1c 13.2 H Calculated Osmolal ity Calcium Total Bilirubin AST ALT Alkaline Phosphata se Troponin T Baselin e Total Protein Albumin Globulin Triglycerides 146 Cholesterol 177 LDL Cholesterol, C alc 105 HDL Cholesterol 43 L LDL/HDL Ratio 2.44 Cholesterol/HDL Ra cami 4.12 Lipase 11/11/21 11/11/21 11/10/21 07:07 07:07 18:16 WBC 8.2 RBC 4.54 Hgb 13.9 Hct 41.1 MCV 90.5 MCH 30.6 MCHC 33.8 RDW 12.2 Plt Count 258 MPV 10.2 Neut % (Auto) 53.0 Lymph % (Auto) 35.8 [place] % (Auto) 6.8 Eos % (Auto) 3.0 Baso % (Auto) 0.9 Neut # (Auto) 4.35 Lymph # (Auto) 2.9 [place] # (Auto) 0.6 Eos # (Auto) 0.3 Baso # (Auto) 0.1 Nucleated RBC % (a uto) 0 Nucleated RBCs # 0.0 Sodium 139 Potassium 3.8 Chloride 103 Carbon Dioxide 23 Anion Gap 16.8 BUN 13 Creatinine 0.6 GFR Calculation 106.3 Glucose 201 H POC Glucose Estimat Average Gl ucose Hemoglobin A1c Calculated Osmolal ity 294 Calcium 8.3 L Total Bilirubin 0.4 AST 21 ALT 29 Alkaline Phosphata se 105 Troponin T Baselin e 9 Total Protein 5.7 L Albumin 3.6 Globulin 2.1 Triglycerides Cholesterol LDL Cholesterol, C alc HDL Cholesterol LDL/HDL Ratio Cholesterol/HDL Ra cami Lipase 11/10/21 11/10/21 11/10/21 18:16 18:16 17:33 WBC 9.4 RBC 4.78 Hgb 14.7 Hct 42.7 MCV 89.3 MCH 30.8 MCHC 34.4 RDW 12.0 L Plt Count 301 MPV 9.9 Neut % (Auto) 55.3 Lymph % (Auto) 34.0 [place] % (Auto) 5.8 Eos % (Auto) 3.8 Baso % (Auto) 0.7 Neut # (Auto) 5.19 Lymph # (Auto) 3.2 [place] # (Auto) 0.6 Eos # (Auto) 0.4 Baso # (Auto) 0.1 Nucleated RBC % (a uto) 0 Nucleated RBCs # 0.0 Sodium 139 Potassium 3.7 Chloride 102 Carbon Dioxide 21 L Anion Gap 19.7 H BUN 13 Creatinine 0.8 GFR Calculation 76.2 L Glucose 205 H POC Glucose 189 H Estimat Average Gl ucose Hemoglobin A1c Calculated Osmolal ity 294 Calcium 8.3 L Total Bilirubin 0.3 AST 23 ALT 35 H Alkaline Phosphata se 121 H Troponin T Baselin e Total Protein 6.4 L Albumin 4.0 Globulin 2.4 Triglycerides Cholesterol LDL Cholesterol, C alc HDL Cholesterol LDL/HDL Ratio Cholesterol/HDL Ra cami Lipase 23 Addt'l Data from Hospital Stay: Laboratory Results WBC 8.2 10^3/uL (4.0- 10.0) 11/11/21 07:07 RBC 4.54 10^6/uL (4.1 -5.3) 11/11/21 07:07 Hgb 13.9 g/dL (11.5-1 5.3) 11/11/21 07:07 Hct 41.1 % (37.0-47.0 ) 11/11/21 07:07 MCV 90.5 fl (81-99) 11/11/21 07:07 MCH 30.6 pg (28.0-34. 0) 11/11/21 07:07 MCHC 33.8 g/dL (30.0-3 6.0) 11/11/21 07:07 RDW 12.2 % (12.1-15.1 ) 11/11/21 07:07 Plt Count 258 10^3/cmm (130 -400) 11/11/21 07:07 MPV 10.2 fL (7.4-10.4 ) 11/11/21 07:07 Neut % (Auto) 53.0 % 11/11/21 07:07 Lymph % (Auto) 35.8 % 11/11/21 07:07 [place] % (Auto) 6.8 % 11/11/21 07:07 Eos % (Auto) 3.0 % 11/11/21 07:07 Baso % (Auto) 0.9 % 11/11/21 07:07 Neut # (Auto) 4.35 10^3/uL (1.8 -7.7) 11/11/21 07:07 Lymph # (Auto) 2.9 10^3/uL (0.8- 4.8) 11/11/21 07:07 [place] # (Auto) 0.6 10^3/uL (0.2- 0.9) 11/11/21 07:07 Eos # (Auto) 0.3 10^3/uL (0.0- 0.8) 11/11/21 07:07 Baso # (Auto) 0.1 10^3/uL (0.0- 0.1) 11/11/21 07:07 Nucleated RBC % (a uto) 0 % 11/11/21 07:07 Nucleated RBCs # 0.0 /100WBC 11/11/21 07:07 Sodium 139 mmol/L (136-1 45) 11/11/21 07:07 Potassium 3.8 mmol/L (3.5-5 .1) 11/11/21 07:07 Chloride 103 mmol/L (98-10 7) 11/11/21 07:07 Carbon Dioxide 23 mmol/L (22-29) 11/11/21 07:07 Anion Gap 16.8 (5-19) 11/11/21 07:07 BUN 13 mg/dL (6-20) 11/11/21 07:07 Creatinine 0.6 mg/dL (0.5-0. 9) 11/11/21 07:07 GFR Calculation 106.3 mL/min (90- 130) 11/11/21 07:07 Glucose 201 mg/dL (65-115 ) H 11/11/21 07:07 POC Glucose 201 mg/dL (70-110 ) H 11/11/21 08:18 Estimat Average Gl ucose 332 11/11/21 07:07 Hemoglobin A1c 13.2 % (4.0-6.0) H 11/11/21 07:07 Calculated Osmolal ity 294 mOsm/kg (285- 295) 11/11/21 07:07 Calcium 8.3 mg/dL (8.5-10 .5) L 11/11/21 07:07 Total Bilirubin 0.4 mg/dL (0.15-1 .2) 11/11/21 07:07 AST 21 U/L (0-32) 11/11/21 07:07 ALT 29 U/L (0-33) 11/11/21 07:07 Alkaline Phosphata se 105 IU/L (35-105) 11/11/21 07:07 Troponin T Baselin e 9 ng/L (0-10) 11/10/21 18:16 Total Protein 5.7 g/dL (6.6-8.7 ) L 11/11/21 07:07 Albumin 3.6 g/dL (3.5-5.2 ) 11/11/21 07:07 Globulin 2.1 g/dL (1.3-4.6 ) 11/11/21 07:07 Triglycerides 146 mg/dL (0-150) 11/11/21 07:07 Cholesterol 177 mg/dL (0-200) 11/11/21 07:07 LDL Cholesterol, C alc 105 mg/dL (50-129 ) 11/11/21 07:07 HDL Cholesterol 43 mg/dL (60-100) L 11/11/21 07:07 LDL/HDL Ratio 2.44 RATIO (0.00- 3.22) 11/11/21 07:07 Cholesterol/HDL Ra cami 4.12 mg/dL (0.0-4 .40) 11/11/21 07:07 Lipase 23 U/L (13-60) 11/10/21 18:[address] 11/10/21 17:42 IMPRESSION: No acute intracranial abnormality. Head/Neck CTA 11/10/21 17:42 IMPRESSION: No arterial stenosis, occlusion or aneurysm. IMPRESSION: No arterial stenosis, occlusion or dissection. REFERENCES: NASCET CRITERIA. The degree of internal carotid artery stenosis is based on NASCET criteria. Normal is no stenosis. Mild is less than 50% stenosis. Moderate is 50-69% stenosis. Severe is 70% to 99% stenosis. Total occlusion is no detectable patent lumen. Vitals: Last Vital Signs Temp 97.7 F 11/10/21 19:00 Pulse 85 11/11/21 09:11 Resp 20 H 11/11/21 09:11 BP 177/97 11/11/21 08:20 Pulse Ox 97 11/11/21 09:11 Discharge Plan Discharge Patient Disposition: Home Condition: Stable Prescriptions: New amlodipine 10 mg tablet 10 mg PO DAILY Qty: 30 RF: 0 losartan 25 mg tablet 25 mg PO DAILY Qty: 30 RF: 0 Continued cyclobenzaprine 10 mg tablet 10 mg PO TID PRN (Reason: Muscle Spasm) RF: 0 Synthroid 300 mcg tablet 300 mcg PO DAILY RF: 0 citalopram 10 mg tablet 10 mg PO DAILY RF: 0 glipizide 10 mg tablet 10 mg PO TID RF: 0 simvastatin 80 mg tablet 80 mg PO DAILY RF: 0 tramadol 50 mg tablet 50 mg PO TID PRN (Reason: Pain) RF: 0 aspirin 81 mg Tablet,Chewable 81 mg PO DAILY RF: 0 bupropion HCl 300 mg tablet extended release 24 hr 300 mg PO DAILY RF: 0 Trulicity 1.5 mg/0.5 mL pen injector 1.5 mg SUBCUT Q7D RF: 0 Changed metoprolol succinate 25 mg tablet extended release 24 hr 50 mg PO DAILY Qty: 0 RF: 0 Discontinued amlodipine 2.5 mg tablet 2.5 mg PO DAILY RF: 0 Discharge Orders: Discharge Order (Routine); Ordered 11/11/21 Ordered By: Cisco Donald Other Ambulatory Orders: [place] cardiac event monitor (Routine) Timeframe: 1 Week Facility: [facility] - Location: Cardiac Diagnostic Laboratory Ordered By: Cisco Donald Referrals: Kenia Saldana MD [Physician] - 2 weeks Richi Leo MD [Physician] - 7-10 days Lorraine Hallman [Primary Care Provider] - 7-10 days Discharge Diet: Cardiac and Diabetic Discharge Activity: Resume usual activity Patient Instructions: Opioid Safety Activity Restrictions/Additional Instructions: Please follow-up with Dr. Saldana within 2 weeks. Please follow-up with Dr. Leo/clinical data manager within next 1 week to 10 days. Your dose of antihypertensives have been changed. Amlodipine has been increased to 10 mg daily, losartan 25 mg daily has been added to your medication list. Please recheck HbA1c in 3 months. Please check your blood pressure daily at home and maintain a blood pressure diary and follow-up with your primary care provider for further adjustments of antihypertensives. Discharge Attestations Time Spent in Discharge Care*: greater than 30 min Specific Discharge Activities: educating patient, discussing with pcp/other providers, discussing with continuous pillowcase cutter/social workers/dc planners, documenting/other paperwork and evaluating patient/reviewing data Status at Discharge: Cognitive status at discharge: cognitively intact, Behavioral status at discharge: cooperative, Functional status at discharge: independent ambulation Overall status at discharge: patient is back to baseline Quality Metrics Clinical Quality Measures During this hospital stay, did patient experience: None Coding Level of Care Code Acute Chg FW DC note Diagnoses TIA (transient ischemic attack) G45.9
[2021-11-11 13:15] LABS: Thyroid Stimulating Hormone 4.35 uIU/mL (0.27-4.20)
== END 2021-11-11 13:32 | disposition home or self-care (01) ==
LOC: ER 20:27 → ER IP 11-11 07:23
PROVIDERS: Admitting Provider Student in an Organized Health Care Education/Training Program; Emergency Provider Emergency Medicine; PCP Registered Nurse; Visit Provider Student in an Organized Health Care Education/Training Program
DX: G45.9 Transient cerebral ischemic attack, unspecified (principal); R00.0 Tachycardia, unspecified; E11.9 Type 2 diabetes mellitus without complications; I10 Essential (primary) hypertension; Z79.84 Long term (current) use of oral hypoglycemic drugs; Z79.82 Long term (current) use of aspirin; Z86.16 Personal history of COVID-19
CPT/HCPCS: 36415; 36416; 70450; 70496; 70498; 70551; 80053; 80061; 82962; 83036; 83690; 84443; 84484; 85025; 93005; 93306; 99285; G0378; Q9967

== ENCOUNTER → 2023-08-12 14:03 | Outpatient (BNVA) | payer OTHER, SELFPAY | PROVIDERS: PCP Nurse Practitioner Family; Visit Provider Nurse Practitioner Family | DX: J02.9 Acute pharyngitis, unspecified (principal); R05.8 Other specified cough; Z20.822 Contact with and (suspected) exposure to COVID-19 | CPT/HCPCS: 87426; 87880 ==

== ENCOUNTER 2023-08-16 08:22 | Day surgery (SDC) | payer OTHER, SELFPAY ==
[2023-08-16 05:59] VITALS: BMI 39.9
[2023-08-16 08:39] VITALS: BP 141/82; PULSE 82; RESP 18; TEMP 36.2; O2SAT 92
--- NOTE | 2023-08-16 08:47 | P.HPUD_ITS ---
Surgery/Procedure H&P Update DATE OF PROCEDURE: August 16, 2023 DATE H&P PERFORMED: 07/22/23 H&P UPDATE INFORMATION: I have reviewed H&P completed within last 30 days, I have examined patient prior to procedure, No changes to prior documentation and [place] [facility] [place] indicated PLANNED PROCEDURE: Operation Date: 08/16/23 08:50 Proposed Procedures p 30325 EGD 18826 colonoscopy K21.9,K62.5(Not Applicable) - Ranjeet Alexis MD s Colonoscopy(Not Applicable) - Ranjeet Alexis MD
[2023-08-16] MEDS: sodium chloride 0.9% 1,000 ML 30 ML IV (08:50)
--- NOTE | 2023-08-16 08:52 | ANES.PREANE2 ---
Pre-Anesthetic Assessment Height/Weight: Height 1.65 m Weight 108.862 kg Temp Pulse Resp BP Pulse Ox O2 Del Method 97.1 F L 82 18 141/82 92 Room Air 08/16/23 08:39 08/16/23 08:39 08/16/23 08:39 08/16/23 08:39 08/16/23 08:39 08/16/23 08:39 Preop Diagnosis: ABD pain Operation Date: 08/16/23 08:50 Proposed Procedures p 13440 EGD [id number] colonoscopy K21.9,K62.5(Not Applicable) - Ranjeet Alexis MD s Colonoscopy(Not Applicable) - Ranjeet Alexis MD Familial anesthetic complications: none Was Beta Campos taken within 24 hours: N/A Was Clonidine taken within 24 hours: N/A Last intake: Intake Last Liquid Date 08/15/23 Last Liquid Time 20:00 Last Solid Date 08/14/23 Last Intake: 20:00 Social No alcohol and No tobacco Exam alert, oriented x 3, clear to auscultation bilaterally and regular rate & rhythm Airway Submandibular: within normal limits Cervical ROM: within normal limits Mallampati: Class III Dentition: partials (lower) Pulmonary None reported CV/HEM Hypertension and Palpitations None reported Hepatic None reported GI Gastroesophageal Reflux Disease Metabolic Diabetes Mellitus (avg 200) and Thyroid Disease Musc/skel Lower Back Pain and Osteoarthritis/DJD Neuropsych Syncope and Transient Ischemic Attack Anesthetic Plan ASA status: 3 Anesthesia: MAC Risk of > 500 ml blood loss (7ml/kg in children): No Medications/Allergies Home Medications Medication Instructions Recorded Confirmed Last Taken Type amlodipine 10 mg tablet 10 mg PO DAILY #30 tabs 11/11/21 08/16/23 08/15/23 Rx aspirin 81 mg chewable tablet 81 mg PO DAILY 11/11/21 08/16/23 08/13/23 History bupropion HCl 300 mg 24 hr tablet, 300 mg PO DAILY 11/11/21 08/16/23 08/15/23 History extended release citalopram 10 mg tablet 10 mg PO DAILY 11/11/21 08/16/23 08/15/23 History cyclobenzaprine 10 mg tablet 10 mg PO TID PRN Muscle Spasm 11/11/21 08/16/23 08/15/23 History dulaglutide 1.5 mg/0.5 mL 1.5 mg SUBCUT Q7D 11/11/21 08/16/23 08/02/23 History subcutaneous pen injector (Trulicity) glipizide 10 mg tablet 10 mg PO TID 11/11/21 08/16/23 08/15/23 History levothyroxine 300 mcg tablet 300 mcg PO DAILY 11/11/21 08/16/23 08/16/23 History (Synthroid) losartan 25 mg tablet 25 mg PO DAILY #30 tabs 11/11/21 08/16/23 08/15/23 Rx metoprolol succinate 25 mg 50 mg PO DAILY #0 tabs 11/11/21 08/16/23 08/15/23 Rx tablet,extended release 24 hr simvastatin 80 mg tablet 80 mg PO DAILY 11/11/21 08/16/23 08/15/23 History tramadol 50 mg tablet 50 mg PO TID PRN Pain 11/11/21 08/16/23 11/10/21 History Allergies Allergy/AdvReac Type Severity Reaction Status Date / Time erythromycin base Allergy ALGY-Anaphy Verified 08/16/23 08:43 laxis naproxen [From Naprosyn] Allergy ALGY-Anaphy Verified 08/16/23 08:43 laxis Sulfa (Sulfonamide Allergy ALGY-Anaphy Verified 08/16/23 08:43 Antibiotics) laxis Current Medications Generic Name Dose Route Start Last Admin Trade Name Freq PRN Reason Stop Dose Admin Sodium Chloride 1,000 mls @ 30 mls/hr 08/16/23 08:30 08/16/23 08:50 Sodium Chloride 0.9% IV 30 mls/hr .Q24H JOVANI Administration PFSH Anesthesia Medical History Blurred vision Brain TIA COVID-19 COVID-12 june 2021 Diabetes Hypertension Social History Smoking and tobacco status: never smoked Data Anesthesia Cardiac Studies: Echocardiogram 11/10/21 Cardiac Event Monitor 11/20/21
[2023-08-16 09:05] LABS: Glucose Point of Care 269 mg/dL (70-110)
[2023-08-16 09:41] VITALS: BP 113/81; PULSE 81; RESP 16; TEMP 36.3; O2SAT 95
[2023-08-16 09:52] VITALS: BP 143/90; PULSE 80; RESP 16; O2SAT 93
== END 2023-08-16 10:15 | disposition home or self-care (01) ==
PROVIDERS: PCP Nurse Practitioner Family; Visit Provider Surgery
PROC: 0DJ08ZZ Inspection of Upper Intestinal Tract, Via Natural or Artificial Opening Endoscopic (ICD-10-PCS; CPT 43235; principal; 2023-08-16 08:50)
PROC: 0DJD8ZZ Inspection of Lower Intestinal Tract, Via Natural or Artificial Opening Endoscopic (ICD-10-PCS; CPT 45378; 2023-08-16 08:50)
DX: K29.70 Gastritis, unspecified, without bleeding (principal); K29.80 Duodenitis without bleeding; I10 Essential (primary) hypertension; E11.9 Type 2 diabetes mellitus without complications; Z86.73 Personal history of transient ischemic attack (TIA), and cerebral infarction without residual deficits; Z79.82 Long term (current) use of aspirin
CPT/HCPCS: 36416; 43239; 45378; 82962; 88305; 88342; J2704; J7030